=== PATIENT | male | born 1960 | race Caucasian/White ===

== ENCOUNTER 2016-06-27 00:12 | Emergency (ER) | payer SELFPAY ==
[~2016-06-27] VITALS: Ht 162.6 cm; Wt 79.0 kg
[~2016-06-27 00:12] MED LIST: ALBU18HF INHALATION; IPRA4AER INHALATION; LEVO500T72 PO; METF500T4 PO; PRED20TA PO; PRED50 PO; QVAR40 INH; RTPRO NEB; RTPRO5
[2016-06-27 00:16] VITALS: Ht 162.6 cm; Wt 79.0 kg
[2016-06-27] MEDS ORDERED: IPRATROPIUM (NEB) 0.5 MG/2.5 ML AMP INH STA (01:41)
[2016-06-27] MEDS ORDERED: ALBUTEROL 0.5% (NEB) 2.5 MG/0.5 ML AMP INH STA (01:41)
[2016-06-27] MEDS ORDERED: predniSONE 20 MG TAB PO ONE (02:00)
--- NOTE | 2016-06-27 02:57 | ERD ---
ER Documentation Chief Complaint Date/Time DATE: 06/27/16 TIME: 02:55 Chief Complaint shortnesss of breat, x 3 days, ough x32 days HPI This is a 55-year-old male presents to the emergency room for evaluation of a cough and wheezing and shortness of breath for the past 3 days. The patient does state he has a history of asthma which does get worse when the weather gets cold. The patient does not have an inhaler, has not taken any medications for himself and came to the ER for evaluation. ROS All systems reviewed and are negative except as per history of present illness. Medications Home Meds Active Scripts Prednisone* (Prednisone*) 20 Mg Tab, 40 MG PO DAILY, #4 TAB Prov:LV LOWRY DO 05/17/16 Albuterol Sulfate* (Ventolin HFA*) 18 Gm Hfa.aer.ad, 2 PUFF INHALATION Q4H, #1 INHALER Prov:LV LOWRY DO 05/17/16 Levofloxacin* (Levaquin*) 500 Mg Tablet, 500 MG PO DAILY for 6 Days, TAB Prov:LV LOWRY DO 05/17/16 Albuterol/Ipratropium* (Combivent Respimat*) 20-100 Mcg/Inh - 4 Gm Aer.w.adap, 1 PUFF INHALATION QID, #1 INHALER Prov:NISHA LIRA PA-C 11/12/15 Albuterol Sulfate* (Proventil* Neb) 0.083% Neb, 2.5 MG NEB Q4 Y for SHORTNESS OF BREATH, #30 EA Prov:NISHA LIRA PA-C 11/12/15 Albuterol Sulfate* (Proventil* Neb) 0.083% Neb, 2.5 MG NEB Q4 Y for SHORTNESS OF BREATH, #30 EA Prov:MORGAN FULLER MD 07/03/15 Prednisone (Prednisone) 50 Mg Tab, 50 MG PO DAILY for 5 Days, TAB Prov:MORGAN FULLER MD 07/03/15 Beclomethasone Dip (Qvar 40) 1 Puff Inha, 2 PUFF INH BID, #1 INHALER Prov:MORGAN FULLER MD 07/03/15 Reported Medications Metformin* (Glucophage*) 500 Mg Tab, 500 MG PO BID 08/06/11 Albuterol Sulfate* (Proventil* Neb) 0.5 Ml Nebu 01/10/10 Allergies Allergies: Coded Allergies: No Known Drug Allergy (Verified Allergy, Mild, 09/24/12) PMhx/Soc History of Surgery: Yes (FOREIGN OBJECT REMOVAL 35YRS AGO,ON LEFT LOWER BACK) Anesthesia Reaction: No Hx Neurological Disorder: No Hx Respiratory Disorders: Yes (HAS H/O ASTHMA AND SOB) Hx Cardiac Disorders: No Hx Psychiatric Problems: No Hx Miscellaneous Medical Probl: Yes (PATIENT HAS BEEN DIABETIC FOR 10 YRS MANAGED BY ORAL MEDS) Hx Alcohol Use: Yes (1 BEER/WEEK) Hx Substance Use: No Hx Tobacco Use: No (quit 10 years ago) Smoking Status: Unknown if ever smoked Physical Exam Vitals Vital Signs Date Time Temp Pulse Resp B/P Pulse Ox O2 Delivery O2 Flow Rate FiO2 06/27/16 01:54 2.0 06/27/16 01:54 83 16 100 Nasal Cannula 2.0 06/27/16 01:39 Nasal Cannula 2.0 06/27/16 01:39 98.0 83 17 143/101 100 Nasal Cannula 2.0 06/27/16 00:16 98.7 97 20 194/93 98 Physical Exam INITIAL VITAL SIGNS: Reviewed by me GENERAL: The patient is well developed and appropriate for usual state of health in no apparent distress HEENT: Pupils equal, round, and reactive to light. EOMI. There is no scleral icterus. NECK: C-spine is soft and supple, there is no meningismus. There is no cervical lymphadenopathy. LUNGS: Diffuse wheezing auscultated in the upper and lower lobes HEART: Regular rate and rhythm, no murmurs, clicks, rubs or gallops. ABDOMEN: Soft, non-tender, non-distended. There are bowel sounds in all four quadrants. No rebound or guarding. EXTREMITIES: There is no peripheral cyanosis or edema. No focal swelling or erythema. NEUROLOGICAL: The patient moves all four extremities with 5/5 strength. Cranial nerves II - XII are intact. Normal gait. Alert and oriented SKIN: There is no apparent rash or petechiae. HEME/LYMPHATIC: There is no evidence of excessive bruising or lymphedema. PSYCHIATRIC: The patient does not appear anxious or depressed. Results 24 hrs Current Medications Medications (Trade) Dose Ordered Sig/Alfreda Route PRN Reason Start Time Stop Time Status Last Admin Dose Admin Albuterol (Proventil 0.5% (Neb)) 15 mg ONCE STAT INH 06/27/16 01:41 06/27/16 01:43 DC 06/27/16 01:49 Ipratropium [place] (Atrovent 0.02% (Neb)) 1 mg ONCE STAT INH 06/27/16 01:41 06/27/16 01:43 DC 06/27/16 01:49 Prednisone (Prednisone) 60 mg ONCE ONCE PO 06/27/16 02:00 06/27/16 02:01 DC 06/27/16 02:18 Procedures/MDM This is a 55-year-old male who presents to the emergency room for evaluation of wheezing and shortness of breath. This patient did have diffuse wheezing on my examination. He was given a breathing treatment with albuterol, Atrovent, was given 60 mg p.o. Solu-Medrol. He was not hypoxic, not tachycardic. Upon my reevaluation after his breathing treatment is over the patient states he is feeling much better at this time. The patient will be discharged home at this time with a prescription for albuterol, and prednisone. The patient is comfortable to plan of care and says he will follow-up with his primary care physician. Departure Diagnosis: Primary Impression: Acute asthma exacerbation Additional Impression: Shortness of breath Condition: Stable HERBER MYRCIK DO Jun 27, 2016 02:57
[2016-06-27] MEDS ORDERED: ALBU8.5H3 INH (02:58)
[2016-06-27] MEDS ORDERED: PRED20TA PO (02:58)
[2016-06-27 03:32] VITALS: BP 141/89; PULSE 98; RESP 17; TEMP 98
== END 2016-06-27 03:35 | disposition home or self-care (01) ==
LOC: E/R 00:12
DX: J45.901 Unspecified asthma with (acute) exacerbation (principal); E11.9 Type 2 diabetes mellitus without complications; Z87.891 Personal history of nicotine dependence; Z79.84 Long term (current) use of oral hypoglycemic drugs
CPT/HCPCS: 94644; J7512

== ENCOUNTER 2016-08-14 12:00 | Emergency (ER) | payer MEDICAID ==
[~2016-08-14] VITALS: Ht 167.6 cm; Wt 76.5 kg
[~2016-08-14 12:00] MED LIST changes: +ALBU8.5H3 INH
[2016-08-14 12:10] VITALS: Ht 167.6 cm; Wt 76.5 kg
[2016-08-14] MEDS ORDERED: IPRATROPIUM (NEB) 0.5 MG/2.5 ML AMP INH STA (14:09)
[2016-08-14] MEDS ORDERED: predniSONE 20 MG TAB PO STA (14:09)
[2016-08-14] MEDS ORDERED: ALBUTEROL 0.5% (NEB) 2.5 MG/0.5 ML AMP INH STA (14:09)
[2016-08-14] MEDS ORDERED: DIPHENHYDRAMINE 25 MG CAP PO ONE (14:30)
--- NOTE | 2016-08-14 15:56 | RADRPT ---
PROCEDURE: XR Chest. CLINICAL INDICATION: Asthma and shortness of breath. TECHNIQUE: Single frontal view. COMPARISON: 11/12/2015. FINDINGS: The lungs are clear. The heart size is normal. There is no pleural effusion. There is no pneumothorax. IMPRESSION: 1. Normal chest radiograph. 2. No change from 11/12/2015. RPTAT: QQ .Jeremy Thompson MD, MD Date Time Electronically viewed and signed by .Jeremy Thompson MD, MD on 08/14/2016 15:56 .R/
[2016-08-14] MEDS ORDERED: PRED20TA PO (16:02)
[2016-08-14] MEDS ORDERED: ALBU8.5H3 INH (16:02)
[2016-08-14 16:25] VITALS: BP 162/76; PULSE 92; RESP 18; TEMP 98.1
--- NOTE | 2016-08-14 16:25 | ERD ---
ER Documentation Chief Complaint Date/Time DATE: 08/14/16 TIME: 16:23 Chief Complaint Asthma x 2 days, SOB HPI 56-year-old man with history of asthma presents with wheezing 2 days. He ran out of his albuterol pump. Denies fevers or chills, no calf or leg swelling, no vomiting or diarrhea. Patient also complains of nasal congestion and rhinorrhea. ROS All systems reviewed and are negative except as per history of present illness. Medications Home Meds Active Scripts Prednisone* (Prednisone*) 20 Mg Tab, 40 MG PO DAILY for 4 Days, TAB Prov:ARSENIO RIVAS MD 08/14/16 Albuterol Sulfate* (Proair HFA*) 8.5 Gm Hfa.aer.ad, 2 PUFF INH Q6H Y for WHEEZING AND SOB, #1 INHALER Prov:ARSENIO RIVAS MD 08/14/16 Prednisone* (Prednisone*) 20 Mg Tab, 40 MG PO DAILY, #10 TAB Prov:HERBER MYRICK DO 06/27/16 Albuterol Sulfate* (Proair HFA*) 8.5 Gm Hfa.aer.ad, 2 PUFF INH Q4, #1 INHALER Prov:HERBER MYRICK DO 06/27/16 Prednisone* (Prednisone*) 20 Mg Tab, 40 MG PO DAILY, #4 TAB Prov:ESSENCELV DO 05/17/16 Albuterol Sulfate* (Ventolin HFA*) 18 Gm Hfa.aer.ad, 2 PUFF INHALATION Q4H, #1 INHALER Prov:LV LOWRY DO 05/17/16 Levofloxacin* (Levaquin*) 500 Mg Tablet, 500 MG PO DAILY for 6 Days, TAB Prov:ESSENCELV DO 05/17/16 Albuterol/Ipratropium* (Combivent Respimat*) 20-100 Mcg/Inh - 4 Gm Aer.w.adap, 1 PUFF INHALATION QID, #1 INHALER Prov:NISHA LIRA PA-C 11/12/15 Albuterol Sulfate* (Proventil* Neb) 0.083% Neb, 2.5 MG NEB Q4 Y for SHORTNESS OF BREATH, #30 EA Prov:NISHA LIRA PA-C 11/12/15 Albuterol Sulfate* (Proventil* Neb) 0.083% Neb, 2.5 MG NEB Q4 Y for SHORTNESS OF BREATH, #30 EA Prov:MORGAN FULLER MD 07/03/15 Prednisone (Prednisone) 50 Mg Tab, 50 MG PO DAILY for 5 Days, TAB Prov:MORGAN FULLER MD 07/03/15 Beclomethasone Dip (Qvar 40) 1 Puff Inha, 2 PUFF INH BID, #1 INHALER Prov:MORGAN FULLER MD 07/03/15 Reported Medications Metformin* (Glucophage*) 500 Mg Tab, 500 MG PO BID 08/06/11 Albuterol Sulfate* (Proventil* Neb) 0.5 Ml Nebu 01/10/10 Allergies Allergies: Coded Allergies: No Known Drug Allergy (Verified Allergy, Mild, 09/24/12) PMhx/Soc Asthma History of Surgery: Yes (FOREIGN OBJECT REMOVAL 35YRS AGO,ON LEFT LOWER BACK) Anesthesia Reaction: No Hx Neurological Disorder: No Hx Respiratory Disorders: Yes (HAS H/O ASTHMA AND SOB) Hx Cardiac Disorders: No Hx Psychiatric Problems: No Hx Miscellaneous Medical Probl: Yes (PATIENT HAS BEEN DIABETIC MANAGED BY ORAL MEDS) Hx Alcohol Use: Yes (1 BEER/WEEK) Hx Substance Use: No Hx Tobacco Use: No (quit 10 years ago) Smoking Status: Never smoker FmHx Family History: No diabetes Physical Exam Vitals Vital Signs Date Time Temp Pulse Resp B/P Pulse Ox O2 Delivery O2 Flow Rate FiO2 08/14/16 14:28 86 20 96 21 08/14/16 12:10 98.1 87 22 192/88 98 Physical Exam GENERAL: Well-developed, well-nourished, well-hydrated, in no apparent distress , looks nontoxic in appearance HEENT: Moist mucous membranes, positive nasal congestion or rhinorrhea, pink conjunctiva, no cervical spine tenderness or step-off deformities, no goiter, no jaundice or icterus, extraocular movements intact without pain. No submandibular induration, and no pharyngeal erythema NEURO: Alert and oriented 3, cranial nerves II through XII intact bilaterally, pupils equal round reactive to light, no focal deficits or facial asymmetry, sensation intact distally Strength 5/5 in upper and lower extremities bilaterally CARDIAC: Regular rate and rhythm, no murmurs rubs or gallops LUNGS: Scattered wheezes bilaterally, no crackles or stridor ABDOMEN: Soft nontender, no guarding, no rigidity, no rebound, no psoas sign no obturator sign. Normoactive bowel sounds SKIN: Warm and dry to touch, no abrasions, contusions, or hematomas, no lacerations, no ecchymosis, no target lesions, and without ulcers EXTREMITIES: No clubbing cyanosis or edema, calves are bilaterally symmetrical, no Homans sign, no popliteal cord sign. Distal pulses equal and bilateral PSYCH: Normal affect without agitation or irritability Results 24 hrs Current Medications Medications (Trade) Dose Ordered Sig/Alfreda Route PRN Reason Start Time Stop Time Status Last Admin Dose Admin Albuterol (Proventil 0.5% (Neb)) 10 mg ONCE STAT INH 08/14/16 14:09 08/14/16 14:11 DC 08/14/16 14:27 Ipratropium [place] (Atrovent 0.02% (Neb)) 1 mg ONCE STAT INH 08/14/16 14:09 08/14/16 14:11 DC 08/14/16 14:27 Prednisone (Prednisone) 60 mg ONCE STAT PO 08/14/16 14:09 08/14/16 14:11 DC 08/14/16 14:19 Diphenhydramine HCl (Benadryl) 25 mg ONCE ONCE PO 08/14/16 14:30 08/14/16 14:31 DC 08/14/16 14:19 Procedures/MDM I administered albuterol 10 mg via nebulizer and ipratropium 1 mg via nebulizer. Patient also received prednisone 60 mg p.o. 1. Chest X-ray 1V Interpreted by me: Soft Tissue: No acute abnormalities Bones: No acute abnormalities Mediastinum/Cardiac Silhouette/Lungs: No acute abnormalities Differential diagnoses considered, included but not limited to acute coronary syndrome, pulmonary embolism, aortic dissection, abdominal aortic aneurysm, sepsis, stroke, meningitis, encephalitis, pneumonia, appendicitis, cholecystitis , bowel obstruction, pyelonephritis, nephrolithiasis, cystitis, as well as metabolic, hematologic, and electrolyte abnormalities. As well as abscess, cellulitis, fractures, and dislocations. Patient feels much better at this time, and vital signs are normal, symptoms have improved. I did give strict instructions to return to the ED if symptoms continue or worsen, patient will otherwise follow-up with primary care physician. Patient understood instructions and agreed to plan. Departure Diagnosis: Primary Impression: Asthma attack Additional Impression: Acute URI Condition: Good Patient Instructions: Asthma, Acute (Adult) ARSENIO RIVAS MD Aug 14, 2016 16:24
== END 2016-08-14 16:27 | disposition home or self-care (01) ==
LOC: FTE 12:00
DX: J45.901 Unspecified asthma with (acute) exacerbation (principal); J06.9 Acute upper respiratory infection, unspecified; E11.9 Type 2 diabetes mellitus without complications; Z79.84 Long term (current) use of oral hypoglycemic drugs; Z87.891 Personal history of nicotine dependence
CPT/HCPCS: 71010; 94644; J7512; Z7502; Z7610

== ENCOUNTER 2016-08-15 22:31 | Emergency (ER) | payer MEDICAID ==
[~2016-08-15] VITALS: Ht 165.1 cm; Wt 77.0 kg
[2016-08-15 23:00] VITALS: Ht 165.1 cm; Wt 77.0 kg
[2016-08-16] MEDS ORDERED: PRED20TA PO (01:07)
[2016-08-16] MEDS ORDERED: ALBU8.5H3 INH (01:07)
--- NOTE | 2016-08-16 01:11 | ERD ---
ER Documentation Chief Complaint Date/Time DATE: 08/16/16 TIME: 01:09 Chief Complaint Pt lost his RX given to him HPI This is a 56-year-old male that presents to the ER because he lost his prescription yesterday. Patient was seen here for asthma. He states today he felt better however he needs his prescriptions. He denies any chest pain, shortness of breath, wheezing, cough, fever, chills. ROS 12 point review of systems was done, all negative except per HPI. Medications Home Meds Active Scripts Prednisone* (Prednisone*) 20 Mg Tab, 40 MG PO DAILY for 5 Days, TAB Prov:MARCELLUS BROWN 08/16/16 Albuterol Sulfate* (Proair HFA*) 8.5 Gm Hfa.aer.ad, 2 PUFF INH Q4, #1 INHALER Prov:MARCELLUS BROWN 08/16/16 Prednisone* (Prednisone*) 20 Mg Tab, 40 MG PO DAILY for 4 Days, TAB Prov:ARSENIO RIVAS MD 08/14/16 Albuterol Sulfate* (Proair HFA*) 8.5 Gm Hfa.aer.ad, 2 PUFF INH Q6H Y for WHEEZING AND SOB, #1 INHALER Prov:ARSENIO RIVAS MD 08/14/16 Prednisone* (Prednisone*) 20 Mg Tab, 40 MG PO DAILY, #10 TAB Prov:HERBER MYRICK DO 06/27/16 Albuterol Sulfate* (Proair HFA*) 8.5 Gm Hfa.aer.ad, 2 PUFF INH Q4, #1 INHALER Prov:HERBER MYRICK DO 06/27/16 Prednisone* (Prednisone*) 20 Mg Tab, 40 MG PO DAILY, #4 TAB Prov:GREENLV DO 05/17/16 Albuterol Sulfate* (Ventolin HFA*) 18 Gm Hfa.aer.ad, 2 PUFF INHALATION Q4H, #1 INHALER Prov:GREEN,LV DO 05/17/16 Levofloxacin* (Levaquin*) 500 Mg Tablet, 500 MG PO DAILY for 6 Days, TAB Prov:GREEN,LV DO 05/17/16 Albuterol/Ipratropium* (Combivent Respimat*) 20-100 Mcg/Inh - 4 Gm Aer.w.adap, 1 PUFF INHALATION QID, #1 INHALER Prov:NISHA LIRA-C 11/12/15 Albuterol Sulfate* (Proventil* Neb) 0.083% Neb, 2.5 MG NEB Q4 Y for SHORTNESS OF BREATH, #30 EA Prov:NISHA LIRAC 11/12/15 Albuterol Sulfate* (Proventil* Neb) 0.083% Neb, 2.5 MG NEB Q4 Y for SHORTNESS OF BREATH, #30 EA Prov:MORGAN FULLER MD 07/03/15 Prednisone (Prednisone) 50 Mg Tab, 50 MG PO DAILY for 5 Days, TAB Prov:MORGAN FULLER MD 07/03/15 Beclomethasone Dip (Qvar 40) 1 Puff Inha, 2 PUFF INH BID, #1 INHALER Prov:MORGAN FULLER MD 07/03/15 Reported Medications Metformin* (Glucophage*) 500 Mg Tab, 500 MG PO BID 08/06/11 Albuterol Sulfate* (Proventil* Neb) 0.5 Ml Nebu 01/10/10 Allergies Allergies: Coded Allergies: No Known Drug Allergy (Verified Allergy, Mild, 09/24/12) PMhx/Soc History of Surgery: Yes (FOREIGN OBJECT REMOVAL 35YRS AGO,ON LEFT LOWER BACK) Anesthesia Reaction: No Hx Neurological Disorder: No Hx Respiratory Disorders: Yes (HAS H/O ASTHMA AND SOB) Hx Cardiac Disorders: No Hx Psychiatric Problems: No Hx Miscellaneous Medical Probl: Yes (PATIENT HAS BEEN DIABETIC MANAGED BY ORAL MEDS) Hx Alcohol Use: Yes (1 BEER/WEEK) Hx Substance Use: No Hx Tobacco Use: No (quit 10 years ago) Physical Exam Vitals Vital Signs Date Time Temp Pulse Resp B/P Pulse Ox O2 Delivery O2 Flow Rate FiO2 08/15/16 23:00 97.3 81 20 118/58 96 Physical Exam GENERAL: The patient is well developed and appropriate for usual state of health , in no apparent distress. HEENT: Atraumatic.. CHEST: Clear to auscultation bilaterally. There are no rales, wheezes or rhonchi. HEART: Regular rate and rhythm. No murmurs, clicks, rubs or gallops. NEURO: Alert and oriented. SKIN: There is no apparent rash or petechia. The skin is warm and dry. Procedures/MDM This a 56-year-old male that presents to the ER for medication refill. Patient lost his prescriptions yesterday. At this time patient does not have any wheezing examination distress and he is extremely well-appearing. He will be sent home with albuterol and prednisone. Patient is to follow-up with his primary care doctor within 1-2 days or return to ER sooner if symptoms worsen. Medical decision making was shared with the patient he understands and agrees with plan. Departure Diagnosis: Primary Impression: Encounter for medication refill Condition: Stable Patient Instructions: Taking Medicine Safely Additional Instructions: Llame al doctor MAANA y kenny laney WILLIAM PARA DENTRO DE 1-2 SALEH.Dgale a la secretaria que nosotros le instruimos hacer esta william.Avise o llame si blancas condicin se empeora antes de la william. Regresa aqui si peor o no mejor. MARCLELUS BROWN Aug 16, 2016 01:11
== END 2016-08-16 01:37 | disposition home or self-care (01) ==
LOC: FTE 22:31
DX: Z76.0 Encounter for issue of repeat prescription (principal); J45.909 Unspecified asthma, uncomplicated; E11.9 Type 2 diabetes mellitus without complications; Z79.84 Long term (current) use of oral hypoglycemic drugs; Z87.891 Personal history of nicotine dependence
CPT/HCPCS: 99281

== ENCOUNTER 2016-10-22 09:28 | Emergency (ER) | payer MEDICAID ==
[~2016-10-22] VITALS: Ht 170.2 cm; Wt 77.0 kg
[2016-10-22 09:31] VITALS: Ht 170.2 cm; Wt 77.0 kg
[2016-10-22] MEDS ORDERED: ALBUTEROL 0.5% (NEB) 2.5 MG/0.5 ML AMP INH STA (09:48)
[2016-10-22] MEDS ORDERED: METHYLPREDNISOLONE 125 MG INJ IM STA (09:48)
[2016-10-22] MEDS ORDERED: IPRATROPIUM (NEB) 0.5 MG/2.5 ML AMP NEB STA (09:48)
[2016-10-22] MEDS ORDERED: PRED20TA PO (11:50)
[2016-10-22] MEDS ORDERED: ALBU8.5H3 INH (11:52)
--- NOTE | 2016-10-22 12:09 | ERD ---
ER Documentation Chief Complaint Date/Time DATE: 10/22/16 TIME: 12:07 Chief Complaint SOB FROM ASTHMA NO RELIEF W/ INHALER HPI This is a 56-year-old male with a history of asthma presenting to the emergency department complaining of wheezing for the past 3 days. Patient states that he has tried to use his inhaler 2 hours prior to being seen but it did not help him completely. Patient denies any chest pain or significant shortness of breath. He denies any fevers. He rates this moderate in severity ROS All systems reviewed and are negative except as per history of present illness. Medications Home Meds Active Scripts Albuterol Sulfate* (Proair HFA*) 8.5 Gm Hfa.aer.ad, 2 PUFF INH Q4H Y for WHEEZING AND SOB, #1 INHALER Prov:ERIC BHATT PA-C 10/22/16 Prednisone* (Prednisone*) 20 Mg Tab, 40 MG PO DAILY for 4 Days, TAB Prov:ERIC BHATT PA-C 10/22/16 Prednisone* (Prednisone*) 20 Mg Tab, 40 MG PO DAILY for 5 Days, TAB Prov:MARCELLUS BROWN 08/16/16 Albuterol Sulfate* (Proair HFA*) 8.5 Gm Hfa.aer.ad, 2 PUFF INH Q4, #1 INHALER Prov:MARCELLUS BROWN 08/16/16 Prednisone* (Prednisone*) 20 Mg Tab, 40 MG PO DAILY for 4 Days, TAB Prov:ARSENIO RIVAS MD 08/14/16 Albuterol Sulfate* (Proair HFA*) 8.5 Gm Hfa.aer.ad, 2 PUFF INH Q6H Y for WHEEZING AND SOB, #1 INHALER Prov:ARSENIO RIVAS MD 08/14/16 Prednisone* (Prednisone*) 20 Mg Tab, 40 MG PO DAILY, #10 TAB Prov:HERBER MYRICK DO 06/27/16 Albuterol Sulfate* (Proair HFA*) 8.5 Gm Hfa.aer.ad, 2 PUFF INH Q4, #1 INHALER Prov:HERBER MYRICK DO 06/27/16 Prednisone* (Prednisone*) 20 Mg Tab, 40 MG PO DAILY, #4 TAB Prov:LV LOWRY DO 05/17/16 Albuterol Sulfate* (Ventolin HFA*) 18 Gm Hfa.aer.ad, 2 PUFF INHALATION Q4H, #1 INHALER Prov:LV LWORY DO 05/17/16 Levofloxacin* (Levaquin*) 500 Mg Tablet, 500 MG PO DAILY for 6 Days, TAB Prov:LV LOWRY DO 05/17/16 Albuterol/Ipratropium* (Combivent Respimat*) 20-100 Mcg/Inh - 4 Gm Aer.w.adap, 1 PUFF INHALATION QID, #1 INHALER Prov:NISHA LIRA PA-C 11/12/15 Albuterol Sulfate* (Proventil* Neb) 0.083% Neb, 2.5 MG NEB Q4 Y for SHORTNESS OF BREATH, #30 EA Prov:NISHA LIRA PA-C 11/12/15 Albuterol Sulfate* (Proventil* Neb) 0.083% Neb, 2.5 MG NEB Q4 Y for SHORTNESS OF BREATH, #30 EA Prov:MORGAN FULLER MD 07/03/15 Prednisone (Prednisone) 50 Mg Tab, 50 MG PO DAILY for 5 Days, TAB Prov:MORGAN FULLER MD 07/03/15 Beclomethasone Dip (Qvar 40) 1 Puff Inha, 2 PUFF INH BID, #1 INHALER Prov:MORGAN FULLER MD 07/03/15 Reported Medications Metformin* (Glucophage*) 500 Mg Tab, 500 MG PO BID 08/06/11 Albuterol Sulfate* (Proventil* Neb) 0.5 Ml Nebu 01/10/10 Allergies Allergies: Coded Allergies: No Known Drug Allergy (Verified Allergy, Mild, 09/24/12) PMhx/Soc History of Surgery: Yes (FOREIGN OBJECT REMOVAL 35YRS AGO,ON LEFT LOWER BACK) Anesthesia Reaction: No Hx Neurological Disorder: No Hx Respiratory Disorders: Yes (HAS H/O ASTHMA AND SOB) Hx Cardiac Disorders: No Hx Psychiatric Problems: No Hx Miscellaneous Medical Probl: Yes (PATIENT HAS BEEN DIABETIC MANAGED BY ORAL MEDS) Hx Alcohol Use: Yes (1 BEER/WEEK) Hx Substance Use: No Hx Tobacco Use: No (quit 10 years ago) Smoking Status: Never smoker Physical Exam Vitals Vital Signs Date Time Temp Pulse Resp B/P Pulse Ox O2 Delivery O2 Flow Rate FiO2 10/22/16 10:11 80 18 96 21 10/22/16 09:31 98.4 84 20 172/84 98 Physical Exam GENERAL: WD/WN, in no apparent distress, non-toxic appearing HENT: NC/AT, bilateral TM has good cone of light EYES: Conjunctiva normal NECK: Supple PULM: Inspiratory and expiratory wheezing. No rales, crackles, or rhonchi heard. No tripod position, normal labored breathing, no stridor, no evidence of using accessory muscles. CV: Good capillary refill, good S1 and S2, no murmurs appreciated GI: Non-distended, no guarding BACK: No masses. EXT: No clubbing, cyanosis, or edema. NEURO: Moves on all fours SKIN: intact, no cyanosis. PSYCH: Normal mood Results 24 hrs Current Medications Medications (Trade) Dose Ordered Sig/Alfreda Route PRN Reason Start Time Stop Time Status Last Admin Dose Admin Ipratropium [place] (Atrovent 0.02% (Neb)) 0.5 mg ONCE STAT NEB 10/22/16 09:48 10/22/16 09:52 DC 10/22/16 10:09 Albuterol (Proventil 0.5% (Neb)) 5 mg ONCE STAT INH 10/22/16 09:48 10/22/16 09:52 DC 10/22/16 10:09 Methylprednisolone Sodium Succinate (Solu-Medrol) 125 mg ONCE STAT IM 10/22/16 09:48 10/22/16 09:52 DC 10/22/16 10:00 Procedures/MDM 56-year-old male with a history of asthma patient presents to the ER with asthma exacerbation, low suspicion for status asthmaticus, pneumonia, inhaled foreign body, or other life threatening pulmonary emergencies due to physical examination. Patient presented with wheezing and had a pulse ox of 98%, RT was consulted in the ED, breathing treatment 5 mg continuous 1 hour treatment was administered. Patient was given 125 mg of Solu-Medrol IM. Patient was saturating well on room air and wheezing improved. Hemodynamically stable for home. Patient was saturating well on room air and shortness of breath improved. Prescription for prednisone for the next 4 days albuterol was given, I have discussed patient to watch his sugars every day since he is taking a short course of prednisone discussed to have a close follow -up with a primary care physician, discussed to return to the ED if not improving as expected or if condition worsens. Patient understood and agreed with this plan. Departure Diagnosis: Primary Impression: Asthma with acute exacerbation Condition: Stable Patient Instructions: Asthma Medications, Asthma, Acute (Adult) Referrals: NO PRIMARY,CARE PHYSICIAN (PCP) Additional Instructions: Visite a blancas mdgladys christensen para un EXAMEN.Regrese a estas instalaciones si no se mejora ajit esperbamos o ajit le dijimos. Prieto shannan niveles de [place] toda la medicina ben y ajit se le indic. Regrese a estas instalaciones si no se mejora ajit esperbamos o ajit le dijimos. ERIC BHATT PA-C Oct 22, 2016 12:09
== END 2016-10-22 12:30 | disposition home or self-care (01) ==
LOC: FTE 09:28
DX: J45.901 Unspecified asthma with (acute) exacerbation (principal); E11.9 Type 2 diabetes mellitus without complications; Z79.84 Long term (current) use of oral hypoglycemic drugs; Z87.891 Personal history of nicotine dependence
CPT/HCPCS: 94664; J2930; Z7502; Z7610

== ENCOUNTER → 2016-11-17 | Emergency (ER) | payer MEDICAID ==
[~2016-11-17] VITALS: Ht 167.6 cm; Wt 77.0 kg
[~2016-11-17] MED LIST changes: +AZIT250T94 PO; +BECL8.7A INH; +IPRATROPIUM (NEB) 0.5 MG/2.5 ML AMP INH STA; +LEVALBUTEROL (NEB) 1.25 MG/0.5 ML AMP HHN ONE; +LEVALBUTEROL (NEB) 1.25 MG/0.5 ML AMP INH STA; +METHYLPREDNISOLONE 125 MG INJ IV STA
[2016-11-17 00:30] VITALS: Ht 167.6 cm; Wt 77.0 kg
--- NOTE | 2016-11-17 00:57 | ERA ---
ER Documentation Chief Complaint Date/Time DATE: 11/17/16 TIME: 00:57 Chief Complaint Shortness of breath HPI The patient is a 56-year-old male, presenting to the ER because of shortness of breath for the last 3 day, associated with cough. He denies any chest pain, palpitation, diaphoresis, abdominal pain, vomiting, dysuria, diarrhea. He does not smoke, drinks socially, smokes marijuana Past medical history: Asthma, diabetes mellitus, hypertension Past surgical history: None ROS All systems reviewed and are negative except as per history of present illness. Medications Home Meds Active Scripts Prednisone* (Prednisone*) 20 Mg Tab, 60 MG PO DAILY for 5 Days, TAB Prov:MORGAN FULLER MD 11/17/16 Beclomethasone Dip* (Qvar 40*) 7.3 Gm Inha, 1 PUFF INH BID, #1 INHALER Prov:MORGAN FULLER MD 11/17/16 Albuterol Sulfate* (Proair HFA*) 8.5 Gm Hfa.aer.ad, 2 PUFF INH Q4H Y for WHEEZING AND SOB, #1 INHALER Prov:MORGAN FULLER MD 11/17/16 Azithromycin* (Zithromax*) 250 Mg Tablet, 250 MG PO .ZPACK DIRECTED, #6 TAB TAKE 500 MG (2 TABS) THE FIRST DAY THEN 250 MG (1 TAB) DAYS 2-5 Prov:MORGAN FULLER MD 11/17/16 Albuterol Sulfate* (Proair HFA*) 8.5 Gm Hfa.aer.ad, 2 PUFF INH Q4H Y for WHEEZING AND SOB, #1 INHALER Prov:ERIC BHATT PA-C 10/22/16 Prednisone* (Prednisone*) 20 Mg Tab, 40 MG PO DAILY for 4 Days, TAB Prov:ERIC BHATT PA-C 10/22/16 Prednisone* (Prednisone*) 20 Mg Tab, 40 MG PO DAILY for 5 Days, TAB Prov:MARCELLUS BROWN 08/16/16 Albuterol Sulfate* (Proair HFA*) 8.5 Gm Hfa.aer.ad, 2 PUFF INH Q4, #1 INHALER Prov:MARCELLUS BROWN 08/16/16 Prednisone* (Prednisone*) 20 Mg Tab, 40 MG PO DAILY for 4 Days, TAB Prov:ARSENIO RIVAS MD 08/14/16 Albuterol Sulfate* (Proair HFA*) 8.5 Gm Hfa.aer.ad, 2 PUFF INH Q6H Y for WHEEZING AND SOB, #1 INHALER Prov:ARSENIO RIVAS MD 08/14/16 Prednisone* (Prednisone*) 20 Mg Tab, 40 MG PO DAILY, #10 TAB Prov:HERBER MYRICK DO 06/27/16 Albuterol Sulfate* (Proair HFA*) 8.5 Gm Hfa.aer.ad, 2 PUFF INH Q4, #1 INHALER Prov:STEPHY MYRICKLIBRA DO 06/27/16 Prednisone* (Prednisone*) 20 Mg Tab, 40 MG PO DAILY, #4 TAB Prov:LV LOWRY DO 05/17/16 Albuterol Sulfate* (Ventolin HFA*) 18 Gm Hfa.aer.ad, 2 PUFF INHALATION Q4H, #1 INHALER Prov:LV LOWRY DO 05/17/16 Levofloxacin* (Levaquin*) 500 Mg Tablet, 500 MG PO DAILY for 6 Days, TAB Prov:LV LOWRY DO 05/17/16 Albuterol/Ipratropium* (Combivent Respimat*) 20-100 Mcg/Inh - 4 Gm Aer.w.adap, 1 PUFF INHALATION QID, #1 INHALER Prov:NISAH LIRAC 11/12/15 Albuterol Sulfate* (Proventil* Neb) 0.083% Neb, 2.5 MG NEB Q4 Y for SHORTNESS OF BREATH, #30 EA Prov:NISHA LIRA-C 11/12/15 Albuterol Sulfate* (Proventil* Neb) 0.083% Neb, 2.5 MG NEB Q4 Y for SHORTNESS OF BREATH, #30 EA Prov:MORGAN FULLER MD 07/03/15 Prednisone (Prednisone) 50 Mg Tab, 50 MG PO DAILY for 5 Days, TAB Prov:MORGAN FULLER MD 07/03/15 Beclomethasone Dip (Qvar 40) 1 Puff Inha, 2 PUFF INH BID, #1 INHALER Prov:MORGAN FULLER MD 07/03/15 Reported Medications Metformin* (Glucophage*) 500 Mg Tab, 500 MG PO BID 08/06/11 Albuterol Sulfate* (Proventil* Neb) 0.5 Ml Nebu 01/10/10 Allergies Allergies: Coded Allergies: No Known Drug Allergy (Verified Allergy, Mild, 09/24/12) PMhx/Soc History of Surgery: Yes (FOREIGN OBJECT REMOVAL 35YRS AGO,ON LEFT LOWER BACK) Anesthesia Reaction: No Hx Neurological Disorder: No Hx Respiratory Disorders: Yes (HAS H/O ASTHMA AND SOB) Hx Cardiac Disorders: No Hx Psychiatric Problems: No Hx Miscellaneous Medical Probl: Yes (PATIENT HAS BEEN DIABETIC MANAGED BY ORAL MEDS) Hx Alcohol Use: Yes (1 BEER/WEEK) Hx Substance Use: No Hx Tobacco Use: No (quit 10 years ago) Physical Exam Vitals Vital Signs Date Time Temp Pulse Resp B/P Pulse Ox O2 Delivery O2 Flow Rate FiO2 11/17/16 01:42 86 20 95 21 11/17/16 00:30 97.5 94 18 187/109 97 Physical Exam Const: No acute distress. Head: Atraumatic. Eyes: Normal Conjunctiva. ENT: Normal External Ears, Nose and Mouth. Neck: Full range of motion. No meningismus. Resp: Bilateral expiratory wheezes Cardio: Regular rate and rhythm. Abd: Soft, non distended, normal bowel sounds, non tender. Skin: No petechiae or rashes. Back: No midline or flank tenderness. Ext: No cyanosis, or edema. Neur: Awake and alert. No focal deficit Psych: Normal Mood and Affect. Result Diagram: 11/17/16 0144 11/17/16 0144 Results 24 hrs Laboratory Tests Test 11/17/16 01:44 White Blood Count 6.610^3/ul Red Blood Count 4.6010^6/ul Hemoglobin 13.7g/dl Hematocrit 40.3% Mean Corpuscular Volume 87.6fl Mean Corpuscular Hemoglobin 29.8pg Mean Corpuscular Hemoglobin Concent 34.0g/dl Red Cell Distribution Width 12.6% Platelet Count 49589^3/UL Mean Platelet Volume 10.1fl Neutrophils % 47.8% Lymphocytes % 31.1% Monocytes % 7.1% Eosinophils % 12.8% Basophils % 0.9% Nucleated Red Blood Cells % 0.0/100WBC Neutrophils # 3.210^3/ul Lymphocytes # 2.110^3/ul Monocytes # 0.510^3/ul Eosinophils # 0.910^3/ul Basophils # 0.110^3/ul Nucleated Red Blood Cells # 0.010^3/ul Sodium Level 137mmol/L Potassium Level 3.6mmol/L Chloride Level 101mmol/L Carbon Dioxide Level 29mmol/L Anion Gap 11 Blood Urea Nitrogen 10mg/dl Creatinine 0.71mg/dl Glucose Level 238mg/dl Calcium Level 9.1mg/dl Current Medications Medications (Trade) Dose Ordered Sig/Alfreda Route PRN Reason Start Time Stop Time Status Last Admin Dose Admin Levalbuterol (Xopenex Neb) 3.75 mg ONCE STAT INH 11/17/16 01:32 11/17/16 01:35 DC 11/17/16 01:42 Ipratropium [place] (Atrovent 0.02% (Neb)) 1.5 mg ONCE STAT INH 11/17/16 01:32 11/17/16 01:35 DC 11/17/16 01:40 Methylprednisolone Sodium Succinate (Solu-Medrol) 125 mg ONCE STAT IV 11/17/16 01:32 11/17/16 01:35 DC 11/17/16 01:49 Levalbuterol (Xopenex Neb) 1.25 mg ONCE ONCE HHN 11/17/16 04:30 11/17/16 04:31 DC 11/17/16 04:37 Procedures/[place] [id number] Radiology Main Line: [phone] DIAGNOSTIC IMAGING REPORT Patient: MARCELL NAGEL : 1960 Age: 56 Sex: M MR #: [id number] DOS: 11/17/16 0132 Ordering MD: MORGAN FULLER MD Location: E/R Room/Bed: PROCEDURE: XR Chest. CLINICAL INDICATION: Asthma exacerbation. TECHNIQUE: Single frontal view of the chest. COMPARISON: 08/14/2016. FINDINGS: Mild cardiomegaly. Mild peribronchial cuffing in the bilateral upper annemarie, compatible with asthma. Mild left lung base atelectasis. The lungs otherwise clear. No signs of pleural fluid or pneumothorax are seen. The osseous structures and soft tissues are unremarkable. IMPRESSION: 1. Mild peribronchial cuffing in the bilateral upper annemarie, compatible with asthma. 2. Mild left lung base atelectasis. RPTAT: [facility] Physician Leon Date Time Electronically viewed and signed by Wai Novak Physician on 11/17/2016 02:03 RS/ CC: MORGAN FULLER MD MEDICAL MAKING DECISION: The patient is a 56-year-old male, presenting with acute asthma exacerbation. He was treated with Xopenex 3.75 mg, Atrovent 1.5 mg nebulizer over one hour, Solu-Medrol 125 mg IV with good response. ABG on room air is adequate. He is stable for outpatient follow-up The differential diagnoses considered include but are not limited to asthma, COPD, pneumonia, pulmonary embolus, pleural effusion, congestive heart failure. Departure Diagnosis: Primary Impression: Asthma with acute exacerbation Additional Impression: Anemia Condition: Good Comments He was discharged with Zithromax, albuterol MDI, Qvar MDI, prednisone I discussed the findings with the patient. I advised the patient to follow-up with the primary physician in about 1-2 days, sooner if needed and return if any concern. MORGAN FULLER MD Nov 17, 2016 00:57
--- NOTE | 2016-11-17 02:03 | RADRPT ---
PROCEDURE: XR Chest. CLINICAL INDICATION: Asthma exacerbation. TECHNIQUE: Single frontal view of the chest. COMPARISON: 08/14/2016. FINDINGS: Mild cardiomegaly. Mild peribronchial cuffing in the bilateral upper annemarie, compatible with asthma. Mild left lung base atelectasis. The lungs otherwise clear. No signs of pleural fluid or pneumothor ax are seen. The osseous structures and soft tissues are unremarkable. IMPRESSION: 1. Mild peribronchial cuffing in the bilateral upper annemarie, compatible with asthma. 2. Mild left lung base atelectasis. RPTAT: [facility] Physician Leon Date Time Electronically viewed and signed by Physician Leon on 11/17/2016 02:03 RS/
[2016-11-17 03:03] LABS: BASOPHIL # 0.1 10^3/ul (0.0-0.1); BASOPHILS % 0.9 % (0.0-2.0); EOSINOPHILS # 0.9 10^3/ul (0.0-0.5); EOSINOPHILS % 12.8 % (0.0-7.0); HEMATOCRIT 40.3 % (42.0-52.0); HEMOGLOBIN 13.7 g/dl (14.0-18.0); LYMPHOCYTES # 2.1 10^3/ul (0.8-2.9); LYMPHOCYTES % 31.1 % (15.0-51.0); MEAN CORPUSCULAR HEMOGLOBIN 29.8 pg (29.0-33.0); MEAN CORPUSCULAR VOLUME 87.6 fl (82.0-101.0); MEAN PLATELET VOLUME 10.1 fl (7.4-10.4); MONOCYTE # 0.5 10^3/ul (0.3-0.9); MONOCYTES % 7.1 % (0.0-11.0); NEUTROPHIL # 3.2 10^3/ul (1.6-7.5); NEUTROPHILS % 47.8 % (39.0-77.0); PLATELET COUNT 315 10^3/UL (140-415); RED CELL DISTRIBUTION WIDTH 12.6 % (11.5-14.5); WHITE BLOOD COUNT 6.6 10^3/ul (4.8-10.8)
[2016-11-17 03:18] LABS: ADD SCAN DIFF NO
[2016-11-17 03:22] LABS: CALCIUM 9.1 mg/dl (8.4-10.2); CREATININE 0.71 mg/dl (0.61-1.24); POTASSIUM 3.6 mmol/L (3.5-5.1)
[2016-11-17 05:03] VITALS: BP 158/98; PULSE 73; RESP 18
[2016-11-17 14:51] LABS: AADO2 Arterial 28.4 mmHg (7.0-24.0); Allen Test ACCEPTAB; Arterial Base Excess 0.5 mmol/L (-3.0-3); Arterial COHb 0.2 % (0.0-3.0); Arterial HCO3 24.9 mmol/L (22.0-26.0); Arterial MetHb 0.2 % (0.0-1.5); Arterial Total Hemglobin 15.3 g/dl (12.0-18.0); MODE ROOM AIR
== END | disposition home or self-care (01) ==
LOC: E/R 00:24
DX: J45.901 Unspecified asthma with (acute) exacerbation (principal); D64.9 Anemia, unspecified; E11.9 Type 2 diabetes mellitus without complications; I10 Essential (primary) hypertension; Z79.84 Long term (current) use of oral hypoglycemic drugs; Z87.891 Personal history of nicotine dependence
CPT/HCPCS: 36415; 36600; 71010; 80048; 82803; 85025; 94640; 94644; 96374; J2930; Z7502; Z7610; 94664

== ENCOUNTER 2017-05-22 05:41 | Emergency (ER) | END 2017-05-22 09:54 | disposition home or self-care (01) ==

== ENCOUNTER 2017-09-07 18:39 | Emergency (ER) | END 2017-09-07 20:06 | disposition home or self-care (01) ==

== ENCOUNTER 2018-01-23 19:14 | Emergency (ER) | END 2018-01-23 20:52 | disposition home or self-care (01) ==

== ENCOUNTER 2018-09-06 00:48 | Emergency (ER) | payer MEDICAID ==
[~2018-09-06] VITALS: Ht 167.6 cm; Wt 83.7 kg
[~2018-09-06 00:48] MED LIST changes: -ALBU8.5H3 INH; -AZIT250T94 PO; -BECL8.7A INH; +BENA20TA4 PO; -IPRA4AER INHALATION; -IPRATROPIUM (NEB) 0.5 MG/2.5 ML AMP INH STA; -LEVALBUTEROL (NEB) 1.25 MG/0.5 ML AMP HHN ONE; -LEVALBUTEROL (NEB) 1.25 MG/0.5 ML AMP INH STA; -LEVO500T72 PO; +METF500T24 PO; -METF500T4 PO; -METHYLPREDNISOLONE 125 MG INJ IV STA; -PRED50 PO; -QVAR40 INH; -RTPRO NEB; -RTPRO5
[2018-09-06 00:51] VITALS: Ht 167.6 cm; Wt 83.7 kg
[2018-09-06] MEDS ORDERED: LEVALBUTEROL (NEB) 1.25 MG/0.5 ML AMP INH STA (01:18)
[2018-09-06] MEDS ORDERED: predniSONE 20 MG TAB PO STA (01:18)
[2018-09-06] MEDS ORDERED: LEVA15HF6 INH (02:19)
[2018-09-06] MEDS ORDERED: PRED20TA PO (02:19)
--- NOTE | 2018-09-06 02:46 | ERD ---
ER Documentation Chief Complaint Chief Complaint sob/asthma x 3 days HPI 58-year-old male presents with complaints of shortness of breath and wheezing x3 days. Patient has a positive history of asthma for which he has an albuterol inhaler, which he states is not currently helping to alleviate his symptoms. Patient states symptoms started 3 days ago, status post marijuana use. Patient admits associated chest tightness but denies chest pain. Patient states symptoms are exacerbated with exercise. Patient has a positive history of diabetes and EtOH and tobacco use. Denies use of any other drugs. ROS All systems reviewed and are negative except as per history of present illness. Medications Home Meds Active Scripts Levalbuterol* (Xopenex* HFA) 15 Gm Inha, 1-2 PUFF INH Q4 PRN for SHORTNESS OF BREATH, #1 EA Prov:CARRINGTON GUZMAN PA-C 09/06/18 Prednisone* (Prednisone*) 20 Mg Tab, 40 MG PO DAILY for 5 Days, #10 TAB Prov:CARRINGTON GUZMAN PA-C 09/06/18 Albuterol Sulfate* (Ventolin HFA*) 18 Gm Hfa.aer.ad, 2 PUFF INHALATION Q4H, #1 INHALER Prov:CHLOE GIBSON MD 01/23/18 Prednisone* (Prednisone*) 20 Mg Tab, 60 MG PO DAILY for 4 Days, TAB Prov:CHLOE GIBSON MD 01/23/18 Reported Medications Benazepril Hcl* (Benazepril Hcl*) 20 Mg Tablet, 20 MG PO DAILY, #30 TAB 01/23/18 Metformin Hcl* (Metformin Hcl*) 500 Mg Tablet, 500 MG PO WITH BREAKFAST, #30 TAB 01/23/18 Allergies Allergies: Coded Allergies: No Known Drug Allergy (Verified Allergy, Mild, 01/23/18) PMhx/Soc History of Surgery: No Anesthesia Reaction: No Hx Neurological Disorder: No Hx Respiratory Disorders: Yes (asthma) Hx Cardiac Disorders: No (HTN ) Hx Psychiatric Problems: No Hx Miscellaneous Medical Probl: Yes (DM ) Hx Alcohol Use: No Hx Substance Use: Yes (MARIJUANA) Hx Tobacco Use: No (quit 10 years ago) Smoking Status: Current some day smoker FmHx Family History: diabetes, coronary disease, other Physical Exam Vitals Vital Signs Date Temp Pulse Resp B/P (MAP) Pulse Ox O2 O2 Flow FiO2 Time Delivery Rate 09/06/18 98.7 88 19 138/83 97 Room Air 03:18 (101) 09/06/18 87 20 97 21 01:33 09/06/18 97.6 93 18 183/93 98 00:51 (123) Physical Exam Const: No acute distress Head: Atraumatic. Normocephalic. Eyes: Normal Conjunctiva ENT: Normal External Ears, Nose and Mouth. Neck: Full range of motion. No meningismus. Resp: Diffuse wheezes throughout the lung cabrera bilaterally. No accessory muscle use. No tachypnea. Patient speaking full sentences. Cardio: Regular rate and rhythm, no murmurs. No chest wall tenderness. Abd: Soft, non tender, non distended. Neur: Awake and alert Psych: Normal Mood and Affect Results 24 hrs Current Medications Medications Dose Sig/Alfreda Start Time Status Last (Trade) Ordered Route PRN Stop Time Admin Dose Reason Admin Prednisone 60 mg ONCE STAT 09/06/18 DC 09/06/18 (Prednisone) PO 01:18 01:42 09/06/18 01:22 1.25 mg ONCE STAT 09/06/18 DC 09/06/18 Levalbuterol INH 01:18 01:33 (Xopenex 09/06/18 01:22 Neb) Procedures/MDM MDM: This is a 58-year-old male who presented to the ED with complaint of asthma exacerbation x3 days. Physical exam reveals audible wheezes but no respiratory distress. O2 sat 98%. Chest x-ray and EKG performed while in ED, no evidence of acute cardio pulmonary abnormality or emergent findings. No evidence of pneumonia or serious bacterial infection. Patient received 60 mg of prednisone and 1.25 mg neb Xopenex while in ED. Status post steroid and breathing treatment patient admits to improvement in symptoms, and into improved b reathing. Auscultation revealed decreased wheezes however mild wheezes remains in the left upper lobe. Patient's pulse ox remained stable. Given patient's respiratory status has stabilized while in the department he is deemed appropriate for outpatient work up. Exam and work up not consistent w/ impending respiratory failure or cardiovascular collapse. Patient stable for discharge at this time with prescription for prednisone and Xopenex. Advised to follow-up with PCP for possible referral to pulmonology for management of recurrent asthma exacerbations. Patient expressed verbal understanding and agreement to treatment plan. All questions addressed and answered. ED return precautions discussed. Departure Diagnosis: Primary Impression: Asthma with acute exacerbation Asthma severity: moderate Asthma persistence: unspecified Qualified Codes: J45.901 - Unspecified asthma with (acute) exacerbation Condition: Stable Patient Instructions: Asthma, Acute (Adult) Additional Instructions: He was seen today for an asthma exacerbation. You are being prescribed prednisone and levalbuterol for wheezes and exacerbation of asthma. If symptoms persist and/or worsen despite use of medication please return to the ER as soon as possible. It is advised that you follow-up with your PCP within the next 1 to 2 days and possible referral to pulmonology for further asthma exacerbations. CARRINGTON GUZMAN PA-C Sep 06, 2018 02:46
[2018-09-06 03:18] VITALS: BP 138/83; PULSE 88; RESP 19
== END 2018-09-06 03:18 | disposition home or self-care (01) ==
LOC: FTE 00:48
DX: J45.901 Unspecified asthma with (acute) exacerbation (principal); E11.9 Type 2 diabetes mellitus without complications; F17.200 Nicotine dependence, unspecified, uncomplicated; Z79.84 Long term (current) use of oral hypoglycemic drugs
CPT/HCPCS: 71045; 93005; 94664; J7512; Z7502; Z7610